=== PATIENT | female | born 1965 | race Caucasian/White ===

== ENCOUNTER → 2016-09-27 | Outpatient (CLI) | payer BC | LOC: MC.RAD 13:00 | DX: Z12.31 Encounter for screening mammogram for malignant neoplasm of breast (principal) ==

== ENCOUNTER 2017-08-28 13:06 | Emergency (ER) | payer OTHER ==
[~2017-08-28] VITALS: Ht 157.5 cm; Wt 75.0 kg
[2017-08-28 13:08] VITALS: TEMP 97.8
[2017-08-28 13:42] LABS: BASO # 0.1 (0.0-0.2); BASO % 0.8 % (0.0-2.0); EOS % 0.1 % (0-4.0); GRAN # 5.6 (1.4-6.5); GRAN % 72.4 % (42.2-75.2); HEMOGLOBIN 12.1 g/dl (12.5-16.0); LYMPH # 1.5 (1.2-3.4); LYMPH % 19.7 % (20.0-51.0); MEAN CELL VOLUME 91 fl (80.0-100.0); MEAN CORPUSCULAR HEMOGLOBIN 30 pg (27.0-31.0); MEAN CORPUSCULAR HGB CONC 33 g/dl (33.0-37.0); MEAN PLATELET VOLUME 10.7 fl (7.4-10.4); MONO # 0.5 (0.1-0.6); MONO % 6.6 % (1.7-9.3); PLATELET COUNT 293 K/mm3 (130-400); RED BLOOD COUNT 4.06 M/mm3 (4.10-5.30); REDCELL DISTRIBUTION WIDTH-CV 12.4 % (11.5-14.5)
[2017-08-28 13:43] LABS: HEMATOCRIT 36.9 % (37.0-47.0)
[2017-08-28 13:54] LABS: ALANINE AMINOTRANSFERASE 29 U/L (9-52); ALBUMIN 4.7 gm/dL (3.5-5.0); ALKALINE PHOSPHATASE 114 U/L (50-136); ANION GAP 12 mmol/L (7-16); AST,SGOT 25 U/L (15-37); BILIRUBIN,TOTAL 0.5 mg/dL (0.0-1.0); BLOOD UREA NITROGEN 16 mg/dL (7-17); CALCIUM 9.5 mg/dL (8.4-10.2); CARBON DIOXIDE 25 mmol/L (22-30); CHLORIDE 104 mmol/L (98-107); CREATININE, serum 0.76 mg/dL (0.52-1.25); GLUCOSE 97 mg/dL (74-106); MAGNESIUM 2.1 mg/dL (1.6-2.3); POTASSIUM 4.1 mmol/L (3.4-5.0); SODIUM 140 mmol/L (137-145); TOTAL PROTEIN 8.7 gm/dL (6.4-8.2)
[2017-08-28 14:10] LABS: TROPONIN-I < 0.012 ng/mL (0.000-0.034)
[2017-08-28 16:10] VITALS: BP 118/76; PULSE 81
== END 2017-08-28 16:06 | disposition home or self-care (01) ==
LOC: COL.ER 13:06
PROVIDERS: Emergency Medicine
DX: R55 Syncope and collapse (principal); R00.2 Palpitations
CPT/HCPCS: J7030

== ENCOUNTER 2017-11-09 07:32 | Day surgery (SDC) | payer OTHER ==
[2017-11-09] VITALS (261 sets, daily range): BP systolic 95–128; BP diastolic 58–73; PULSE 16–74; TEMP 98.2–98.4; O2SAT 94–99
[~2017-11-09] VITALS: Ht 157.5 cm; Wt 75.5 kg
[2017-11-09 08:08] LABS: HEMOGLOBIN 11.4 g/dl (12.5-16.0); MEAN CELL VOLUME 90 fl (80.0-100.0); MEAN CORPUSCULAR HEMOGLOBIN 30 pg (27.0-31.0); MEAN CORPUSCULAR HGB CONC 33 g/dl (33.0-37.0); MEAN PLATELET VOLUME 10.7 fl (7.4-10.4); PLATELET COUNT 267 K/mm3 (130-400); RED BLOOD COUNT 3.85 M/mm3 (4.10-5.30); REDCELL DISTRIBUTION WIDTH-CV 12.5 % (11.5-14.5)
[2017-11-09 08:11] LABS: HEMATOCRIT 34.6 % (37.0-47.0)
[2017-11-09 08:14] LABS: PROTHROMBIN TIME 11.8 SECONDS (9.7-12.8)
[2017-11-09 08:22] LABS: ANION GAP 11 mmol/L (7-16); BLOOD UREA NITROGEN 19 mg/dL (7-17); CALCIUM 9.3 mg/dL (8.4-10.2); CARBON DIOXIDE 26 mmol/L (22-30); CHLORIDE 106 mmol/L (98-107); CREATININE, serum 0.74 mg/dL (0.52-1.25); GLUCOSE 99 mg/dL (74-106); SODIUM 143 mmol/L (137-145)
[2017-11-09] MEDS ORDERED: ASPIRIN 81M81 MG/TA2 PO (08:33)
[2017-11-09] MEDS ORDERED: LEXAPRO 10MG10 MG PO (08:34)
[2017-11-10] VITALS (424 sets, daily range): BP systolic 95–113; BP diastolic 61–65; PULSE 56–65; TEMP 98.2–98.4; O2SAT 95–100
[2017-11-10 06:14] LABS: BASO % 0.5 % (0.0-2.0); EOS # 0.1 (0.0-0.7); EOS % 1.2 % (0-4.0); GRAN # 5.4 (1.4-6.5); GRAN % 65.9 % (42.2-75.2); LYMPH % 24.2 % (20.0-51.0); MEAN CELL VOLUME 91 fl (80.0-100.0); MEAN CORPUSCULAR HEMOGLOBIN 30 pg (27.0-31.0); MEAN CORPUSCULAR HGB CONC 33 g/dl (33.0-37.0); MEAN PLATELET VOLUME 11.4 fl (7.4-10.4); MONO # 0.7 (0.1-0.6); PLATELET COUNT 262 K/mm3 (130-400); RED BLOOD COUNT 3.67 M/mm3 (4.10-5.30); REDCELL DISTRIBUTION WIDTH-CV 12.7 % (11.5-14.5)
[2017-11-10 06:15] LABS: HEMATOCRIT 33.5 % (37.0-47.0)
[2017-11-10 06:27] LABS: ALBUMIN 3.6 gm/dL (3.5-5.0); BILIRUBIN,TOTAL 0.2 mg/dL (0.0-1.0); CALCIUM 9.2 mg/dL (8.4-10.2); CREATININE, serum 0.77 mg/dL (0.52-1.25); TOTAL PROTEIN 7.5 gm/dL (6.4-8.2)
[2017-11-10 07:12] LABS: CHOLESTEROL RISK RATIO 4.3
== END 2017-11-10 09:50 | disposition home or self-care (01) ==
LOC: COL.CAR 07:32 → ICU 18:20 → COL.CAR 11-10 09:50
PROVIDERS: Internal Medicine Cardiovascular Disease; Nurse Practitioner
DX: R94.39 Abnormal result of other cardiovascular function study (principal); R07.9 Chest pain, unspecified; R06.02 Shortness of breath; H53.19 Other subjective visual disturbances; H53.8 Other visual disturbances; R42 Dizziness and giddiness; M25.512 Pain in left shoulder; E04.9 Nontoxic goiter, unspecified; Z87.891 Personal history of nicotine dependence; Z82.49 Family history of ischemic heart disease and other diseases of the circulatory system; Z79.899 Other long term (current) drug therapy; R06.83 Snoring
CPT/HCPCS: OP; 99214; C1760; C1894; J2250; J3010; Q9967

== ENCOUNTER → 2018-08-22 | Outpatient (CLI) | payer BC | LOC: MC.RAD 16:48 | DX: Z12.31 Encounter for screening mammogram for malignant neoplasm of breast (principal) ==

== ENCOUNTER → 2020-03-28 | Outpatient (CLI) | payer BC ==
[~2020-03-28] MED LIST: ASPIRIN 81M81 MG/TA2 PO; LEXAPRO 10MG10 MG PO
== END ==
LOC: MC.RAD 11:15
DX: Z12.31 Encounter for screening mammogram for malignant neoplasm of breast (principal); N63.21 Unspecified lump in the left breast, upper outer quadrant

== ENCOUNTER → 2020-04-03 | Outpatient (CLI) | payer BC | LOC: MC.RAD 09:06 | DX: N60.02 Solitary cyst of left breast (principal) ==

== ENCOUNTER → 2020-10-09 | Outpatient (CLI) | payer BC | LOC: MC.RAD 09:10 | DX: N60.02 Solitary cyst of left breast (principal) ==

== ENCOUNTER → 2023-04-27 | Outpatient (CLI) | payer BC | LOC: CANSCHCLI → MC.RAD 11:29 | DX: Z12.31 Encounter for screening mammogram for malignant neoplasm of breast (principal) ==